=== PATIENT | female | born 1990 | race Caucasian/White ===

== ENCOUNTER 2017-01-17 19:51 | Emergency (ER) | payer MEDICAID ==
[2010-10-07 05:26] VITALS: BMI 25.3
== END 2017-01-17 21:54 | disposition home or self-care (01) ==
LOC: D.ER 19:51
DX: S83.91XA Sprain of unspecified site of right knee, initial encounter (principal); W01.0XXA Fall on same level from slipping, tripping and stumbling without subsequent striking against object, initial encounter; Y93.89 Activity, other specified; Y92.019 Unspecified place in single-family (private) house as the place of occurrence of the external cause; F17.200 Nicotine dependence, unspecified, uncomplicated